=== PATIENT | female | born 1995 | race Caucasian/White ===

== ENCOUNTER 2017-07-07 01:20 | Emergency (ER) | payer OTHER ==
[2017-07-07 01:43] VITALS: TEMP 98.9
[2017-07-07] MEDS ORDERED: ONDANSETRON HCL 4 MG/2 ML SOL IV ONE (01:44)
[2017-07-07] MEDS ORDERED: SODIUM CHLORIDE 0.9% 1000ML 1,000 ML IV SCH (01:45)
[2017-07-07 01:55] LABS: BASOPHILS % (AUTO) 0 % (0-3); EOSINOPHILS % (AUTO) 0 % (0-9); HEMATOCRIT 34 % (35-47); MEAN CORPUSCULAR HGB CONC 34.1 gm/dl (32.0-36.0); MONOCYTES % (AUTO) 5.9 % (0-12)
[2017-07-07] MEDS ORDERED: ONDANSETRON HCL 4 MG/2 ML SOL ONE (01:56)
[2017-07-07] MEDS ORDERED: SODIUM CHLORIDE 0.9% FLUSH 10 ML SOL IV PRN (01:59)
[2017-07-07 02:07] LABS: MEAN CORPUSCULAR VOLUME 80 fL (81-99)
[2017-07-07 02:09] LABS: ALBUMIN 3.3 gm/dl (3.4-5.0); CALCIUM 8.1 mg/dl (8.5-10.1); POTASSIUM 3.2 mMol/L (3.5-5.1)
[2017-07-07 02:14] VITALS: RESP 16
[2017-07-07 02:26] LABS: APPEARANCE,URINE Slightly Cloudy; BILIRUBIN,URINE 1+ (NEGATIVE); COLOR,URINE Dark yellow; GLUCOSE, URINE (UA) NEGATIVE (NEGATIVE); KETONES,URINE 4+ (NEGATIVE); LEUKOCYTE ESTERASE ,URINE NEGATIVE (NEGATIVE); NITRATE,URINE NEGATIVE (NEGATIVE); OCCULT BLOOD,URINE TRACE LYSED (NEG-TRACE); PH,URINE 6.5
[2017-07-07 02:28] LABS: ICTOTEST,URINE NEGATIVE (NEGATIVE)
[2017-07-07] MEDS ORDERED: POTASSIUM CHLORIDE 10 MEQ TER ONE (02:34)
[2017-07-07 02:36] LABS: RBC,URINE 0-3 (0-3AV/HPF); WBC,URINE 0-3 (0-5AV/HPF)
[2017-07-07] MEDS ORDERED: POTASSIUM CHLORIDE 10 MEQ TER PO SCH (02:45)
[2017-07-07] MEDS ORDERED: SODIUM CHLORIDE/KCL 20MEQ 1,000 ML IV ONE ×2 (02:45→02:52)
[2017-07-07] MEDS ORDERED: DIPHENHYDRAMINE 25 MG CAP PO ONE (02:47)
[2017-07-07] MEDS ORDERED: DIPHENHYDRAMINE 25 MG CAP ONE (02:48)
[2017-07-07 04:27] VITALS: BP 104/47; PULSE 107; O2SAT 94
== END 2017-07-07 04:17 | disposition home or self-care (01) | DRG 781 ==
LOC: ED 01:20
DX: O99.512 Diseases of the respiratory system complicating pregnancy, second trimester (principal); E86.0 Dehydration; J06.9 Acute upper respiratory infection, unspecified; Z3A.17 17 weeks gestation of pregnancy; E87.6 Hypokalemia
CPT/HCPCS: 80053; 81001; 85025; 87430; 87804; 93005; 99285; J2405

== ENCOUNTER 2017-12-29 13:42 | Emergency (ER) | payer BC, OTHER ==
[2017-12-29 14:03] VITALS: RESP 20; TEMP 98
[2017-12-29 14:15] LABS: BASOPHILS % (AUTO) 0 % (0-3); EOSINOPHILS % (AUTO) 1 % (0-9); HEMATOCRIT 43 % (35-47); HEMOGLOBIN 13.1 gm/dl (12.0-15.5); LYMPHOCYTES % (AUTO) 8.309 % (10-50); MEAN CORPUSCULAR HEMOGLOBIN 24.3 pg (27.0-32.0); MEAN CORPUSCULAR HGB CONC 30.4 gm/dl (32.0-36.0); MONOCYTES % (AUTO) 5.1 % (0-12); NEUTROPHILS % (AUTO) 85.6 % (37-80)
[2017-12-29 14:18] LABS: APPEARANCE,URINE Slightly Cloudy; BILIRUBIN,URINE 1+ (NEGATIVE); COLOR,URINE Dark yellow; GLUCOSE, URINE (UA) NEGATIVE (NEGATIVE); KETONES,URINE 3+ (NEGATIVE); LEUKOCYTE ESTERASE ,URINE NEGATIVE (NEGATIVE); NITRATE,URINE NEGATIVE (NEGATIVE); OCCULT BLOOD,URINE 2+ (NEG-TRACE); PH,URINE 5.5
[2017-12-29 14:27] LABS: INR 1.03 (0.86-1.12)
[2017-12-29 14:31] LABS: ALBUMIN 3.5 gm/dl (3.4-5.0); BILIRUBIN,TOTAL 1.1 mg/dl (0.2-1.0); CALCIUM 8.7 mg/dl (8.5-10.1); CREATININE 0.6 mg/dl (0.60-1.00); CRP INFLAMMATORY 6.69 mg/dl (0.00-0.33); POTASSIUM 3.7 mMol/L (3.5-5.1); TOTAL PROTEIN 6.8 gm/dl (6.4-8.2)
[2017-12-29 14:35] LABS: BACTERIA 1+ (< 1+); CRYSTALS NEGATIVE (0-3 AVE/HPF); ICTOTEST,URINE NEGATIVE (NEGATIVE)
[2017-12-29 14:36] LABS: MEAN CORPUSCULAR VOLUME 80 fL (81-99)
[2017-12-29 14:37] VITALS: BP 99/68
[2017-12-29 14:37] LABS: CARBON DIOXIDE 21.3 mEq/L (21-32); LACTIC ACID 1.2 mMol/L (0.0-2.0)
[2017-12-29] MEDS ORDERED: CEFTRIAXONE 1 GM PDS IM ONE (14:42)
[2017-12-29] MEDS ORDERED: LIDOCAINE HCL 1% MPF 30 SOL ONE (14:45)
[2017-12-29] MEDS ORDERED: CEFTRIAXONE 1 GM PDS ONE (14:48)
[2017-12-29 14:57] LABS: POIKILOCYTOSIS MOD AMT
[2017-12-29 14:58] LABS: ANISOCYTOSIS SLIGHT AMT; BURR CELLS PRESENT; TARGET CELLS PRESENT; TEAR DROP CELLS PRESENT
[2017-12-29 15:14] VITALS: PULSE 87; O2SAT 98
== END 2017-12-29 15:10 | disposition home or self-care (01) ==
LOC: ED 13:42
DX: N39.0 Urinary tract infection, site not specified (principal)
CPT/HCPCS: 36415; 80053; 81001; 85025; 85610; 87088; 96372; 99283; J0696; J2001